=== PATIENT | female | born 1945 | race Caucasian/White ===

== ENCOUNTER 2019-12-27 06:00 | Day surgery (SDC) | payer OTHER ==
[~2019-12-27 06:00] MED LIST: COZAAR50 MG PO; NEURONTIN300 MG PO; PERCOCET 5-3251 EACH PO; POLY119PG PO
== END 2019-12-27 14:30 | disposition home or self-care (01) ==
LOC: CIR.AMB 06:00
PROVIDERS: ATTEND Orthopaedic Surgery
DX: M23.311 Other meniscus derangements, anterior horn of medial meniscus, right knee (principal); M23.241 Derangement of anterior horn of lateral meniscus due to old tear or injury, right knee; M94.261 Chondromalacia, right knee; M17.11 Unilateral primary osteoarthritis, right knee

== ENCOUNTER 2020-05-17 09:53 | Emergency (ER) | payer OTHER ==
[~2020-05-17] VITALS: Ht 154.9 cm; Wt 61.2 kg
[2020-05-17] MEDS ORDERED: INTESTINEX680 M2 PO (11:26)
[2020-05-17] MEDS ORDERED: AMOX1TAB5 PO (11:26)
== END 2020-05-17 11:34 | disposition home or self-care (01) ==
LOC: ER 09:53
DX: S61.222A Laceration with foreign body of right middle finger without damage to nail, initial encounter (principal); W26.0XXA Contact with knife, initial encounter; Y93.89 Activity, other specified; Y92.090 Kitchen in other non-institutional residence as the place of occurrence of the external cause; Y99.8 Other external cause status

== ENCOUNTER 2025-04-04 12:35 | Emergency (ER) | payer OTHER ==
[~2025-04-04] VITALS: Ht 157.5 cm; Wt 59.0 kg
[~2025-04-04 12:35] MED LIST changes: +AMOX1TAB5 PO; +INTESTINEX680 M2 PO
[2025-04-04] MEDS ORDERED: MAGNESIUM500 MG (13:55)
[2025-04-04] MEDS ORDERED: ROSUVASTATIN CA10 MG PO (13:55)
[2025-04-04] MEDS ORDERED: TRAZODONE HCL50 MG PO (13:55)
[2025-04-04 15:33] LABS: BASO % 1.0 % (0.1-1.2); EOS # 0.07 (0.04-0.54); EOS % 1.2 % (0.7-7.0); LYMPH # 1.71 (1.18-3.74); LYMPH % 28.4 % (19.3-53.1); MEAN PLATELET VOLUME 10.30 fl (9.4-12.4); MONO # 0.50 (0.24-0.82); MONO % 8.3 % (4.7-12.5); NEUT # 3.68 (1.56-6.13); NEUT % 60.9 % (34.0-71.1); RED CELL DISTRIBUTION WIDTH 13.6 % (11.6-14.4)
[2025-04-04 15:52] LABS: URINE APPEARANCE Clear; URINE BILIRRUBIN Negative (NEGATIVE); URINE BLOOD Negative; URINE COLOR Yellow; URINE GLUCOSE Negative (NEGATIVE); URINE KETONE Negative (NEGATIVE); URINE LEUKOCYTE Negative; URINE NITRATE Negative; URINE PROTEIN Negative (NEGATIVE); URINE UROBILINOGEN 0.2 E.U./dl
[2025-04-04 16:00] LABS: URINE BACTERIA 2.4 uL (0.0-1933); URINE CAST 0.00 uL (0.0-1.40); URINE EPITHELIAL CELLS 0.4 uL (0.0-38.8); URINE RBC 1.6 uL (0.0-20.8); URINE WBC 0.3 uL (0.0-23.2)
[2025-04-04 16:11] LABS: BUN CREA RATIO 20.0 (7.0-25.0); CREATININE SERUM 0.99 mg/dL (0.55-1.02); GFR 54.11; GLUCOSE FASTING 134.0 mg/dL (65-100); OSMOLALITY SERUM 286.0 MOSM/KG (275-295)
== END 2025-04-04 17:15 ==
LOC: ER 12:35
PROVIDERS: General Practice
DX: M94.0 Chondrocostal junction syndrome [Tietze] (principal); M54.50 Low back pain, unspecified; I10 Essential (primary) hypertension